=== PATIENT | female | born 1975 | race Two or more races ===

== ENCOUNTER 2021-02-28 10:48 | Emergency (ER) | payer OTHER ==
[~2021-02-28] VITALS: Ht 160 cm; Wt 90.7 kg
[~2021-02-28 10:48] MED LIST: COZAAR100 MG; GLIPIZIDE5 MG; KOMBIGLYZE XR1 EAC2; METFORMIN HCL500 MG; NORVASC2.5 MG
[2021-02-28] MEDS ORDERED: HUMULIN 70100 UNIT/1 (11:07)
[2021-02-28] MEDS ORDERED: AMLODIPINE-OLM1 EAC2 (11:07)
[2021-02-28] MEDS ORDERED: JENTADUETO 2.51 EAC2 (11:08)
== END 2021-02-28 14:35 | disposition home or self-care (01) ==
LOC: ER
DX: S90.32XA Contusion of left foot, initial encounter (principal); W22.8XXA Striking against or struck by other objects, initial encounter; Y93.89 Activity, other specified; Y92.89 Other specified places as the place of occurrence of the external cause; Y99.8 Other external cause status

== ENCOUNTER 2022-05-19 17:09 | Emergency (ER) | payer OTHER | END 2022-05-19 22:51 | disposition home or self-care (01) | LOC: ER 17:09 | DX: M54.50 Low back pain, unspecified (principal); M41.84 Other forms of scoliosis, thoracic region; M43.27 Fusion of spine, lumbosacral region; M62.838 Other muscle spasm ==

== ENCOUNTER 2023-01-09 10:21 | Emergency (ER) | payer OTHER ==
[~2023-01-09] VITALS: Ht 160 cm; Wt 91.6 kg
[~2023-01-09 10:21] MED LIST changes: +AMLODIPINE-OLM1 EAC2; +HUMULIN 70100 UNIT/1; +JENTADUETO 2.51 EAC2
[2023-01-09] MEDS ORDERED: SYNJARDY XR 121 EACH PO (10:29)
== END 2023-01-09 17:01 | disposition home or self-care (01) ==
LOC: ER 10:21
DX: K80.80 Other cholelithiasis without obstruction (principal); N83.202 Unspecified ovarian cyst, left side; N39.0 Urinary tract infection, site not specified; E11.9 Type 2 diabetes mellitus without complications; Z79.84 Long term (current) use of oral hypoglycemic drugs; Z79.4 Long term (current) use of insulin